=== PATIENT | male | born 1955 | race Two or more races ===

== ENCOUNTER 2016-07-05 14:40 | Emergency (ER) | payer MEDICARE, MEDICAID ==
--- NOTE | 2016-07-05 14:58 | ED Physician Chart ---
Chief Complaint/HPI - Patient Information Date Seen:: 07/05/16 Time Seen:: 14:50 Chief Complaint:: Painful "bump" in coccygeal region for about one week. History of Present Illness:: Pt has noticed a painful area in coccygeal region for one week. No fever. Taking po well without N/V/D. No known injury or trauma to affected area. Pt has not taken any pain medication today. Pt states that he just had lunch but forgot to take his diabetic medications today. Allergies:: PCN Vitals:: see Nurse Note. Historian:: Patient Family MD/PCP:: Dr. Borrero LMP:: N/A Review:: Nurse's Note Reviewed Review of Systems - Review of Systems General/Constitutional: No fever, No chills, No weight loss, No weakness, No diaphoresis, No edema, No loss of appetite Skin: Skin lesions (see HPI.) Head: No headache, No light-headedness Eyes: No loss of vision, No pain, No diplopia ENT: No earache, No nasal drainage, No sore throat, No tinnitus Neck: No neck pain, No swelling, No thyromegaly, No stiffness, No mass noted Cardio Vascular: No chest pain, No palpitations, No PND, No orthopnea, No edema Pulmonary: No SOB, No cough, No sputum, No wheezing GI: No nausea, No vomiting, No diarrhea, No pain, No melena, No hematochezia, No constipation, No hematemesis G/U: No dysuria, No frequency, No hematuria Musculoskeletal: No bone or joint pain, No back pain, No muscle pain Endocrine: No polyuria, No polydipsia Psychiatric: No prior psych history Hematopoietic: No bruising, No lymphadenopathy Allergic/Immuno: No urticaria, No angioedema Neurological: No syncope, No focal symptoms, No weakness, No paresthesia, No headache, No seizure, No dizziness, No confusion, No vertigo Past Medical History - Past Medical History Past Medical History: HTN, DM, Other (BPH) Family History: Diabetes Melitus (in P aunt and one brother.) Social History: Smoker (One ppd. Pt has been informed about health risks related to chronic tobacco use and has been advised to quit. Pt has been encouraged to enroll in a smoking cessation program. Pt acknowledges understanding.), No Alcohol, No Drug Use, , Other (lives with his daughter.) Employment:: Retired. Surgical History: None Psychiatricy History: None Medication: Reviewed Family Medical History - Family Member Daughter Living Status: Still Living Other Medical History: ok Physical Exam - Physical Examination General/Constitutional: Awake, Well-developed, well-nourished, Alert, No distress, GCS 15, Non-toxic appearing, Ambulatory Other Gen/Cons comments:: Breathes comfortably, speaks clearly, and ambulates without assistance without difficulty. Head: Atraumatic Eyes: Lids, conjuctiva normal, PERRL, EOMI Skin: No ecchymosis, Well hydrated, No lymphadenopathy Other Skin comments:: There is an approx. 1 cm subcutaneous induration at distal coccygeal region that is tender with palpation with very minimal erythema. No flocculent center. No open wound or crepitus. The lesion is mobile. ENMT: External ears, nose nl, Nasal exam nl, Oropharynx nl Neck: Nontender, Full ROM w/o pain, No JVD, No nuchal rigidity, No mass, No stridor Respiratory: Nl effort/Exclusion, Clear to Auscultation, No Wheeze/Rhonchi/Rales Cardio Vascular: RRR, No murmur, gallop, rubs, NL S1 S2 GI: No tenderness/rebounding/guarding, No organomegaly, No hernia, Normal BS's, Nondistended, No mass/bruits, No McBurney tenderness Other GI comments:: Abdomen is soft. Extremities: No tenderness or effusion, Full ROM, normal strength in all extremities, No edema, Normal digits & nails Neuro/Psych: Alert/oriented (oriented x 3), Mood normal, Normal gait, No focal deficits Labs/Radiology/EKG Results - Lab Results Results: Laboratory Tests 07/05/16 07/05/16 15:45 15:45 WBC 8.9 RBC 4.82 Hgb 15.4 Hct 44.9 MCV 93.0 MCH 31.8 H MCHC Differential 34.2 RDW 11.9 Plt Count 294 MPV 7.1 Neutrophils % 61.5 Lymphocytes % 30.2 Monocytes % 6.0 Eosinophils % 2.2 Basophils % 0.1 Sodium 131 L Potassium 3.7 Chloride 101 Carbon Dioxide 27.6 Anion Gap 6.1 L BUN 14 Creatinine 0.9 Est GFR ( Amer) > 60.0 Est GFR (Non-Af Amer) > 60.0 BUN/Creatinine Ratio 15.6 Glucose 391 H Calcium 9.2 Total Bilirubin 0.4 AST 16 ALT 15 Alkaline Phosphatase 71 Total Protein 6.7 Albumin 3.5 L Globulin 3.2 Albumin/Globulin Ratio 1.1 Serum Ketones NEGATIVE ED Septic Shock - . Is Septic Shock (SBP<90, OR Lactate>4 mmol\\L) present?: No Reassessment (Disposition) - Reassessment Reassessment:: 1640 Pt feels much better. Pt took his diabetic medication metformin. His glucose gradually improved with repeat Accuchek 325. Pt denies any discomfort, lightheadedness. No N/V/D. Pt is ambulatory without difficulty. Lab findings have been reviewed with pt. Pt requests to go home now and does not want further observation/management in hospital. Pt states that he will continue glucose monitoring at home. Pt is aware of signs and symptoms of hypo- and hyperglycemia as well as proper actions to be taken should any of these occurs. Aftercare instructions given. Reassessment Condition:: Improved - Diagnosis Diagnosis:: Early abscess in coccygeal region, not ready for I & D. Stable. Diabetes mellitus, not well controlled due to missing diabetic medical therapy this morning, improved after taking his metformin. Pt will continue glucose monitoring at home. Pt states he will be compliant with his diabetic medical therapy and will be followed with his PCP tomorrow. - Aftercare/Follow up Instructions Aftercare/Follow-Up Instructions:: Refer to Discharge Instructions Notes:: Pt has been instructed to be compliant with his diabetic medical therapy and glucose monitoring at home. Increase oral fluid. Apply warm compress to affected area in coccygeal region for 15 minutes q2h. May take Tylenol 500 mg tab one tab po q4-6h prn pain. F/U with PCP Dr. Borrero in one day for recheck. Return to ER immediately if condition worsens or if any further questions/problems. Medication Prescribed:: Bactrim DS one tab po q12h for 10 days. D-20 R-0 - Patient Disposition Discharge/Transfer:: Home Time:: 16:40 Condition at Disposition:: Stable, Improved ED Discharge Plan - Patient Disposition Prescriptions: Sulfamethoxazole/TMP [Bactrim DS] 1 tab PO Q12HR #0 tab Instructions: Abscess
[2016-07-05 15:55] LABS: % BASOPHILS 0.1 % (0.0-2.0); % EOSINOPHILS 2.2 % (0.0-5.0); % LYMPHOCYTES 30.2 % (20.0-50.0); % NEUTROPHILS 61.5 % (40.0-80.0); HEMATOCRIT 44.9 % (39.0-49.0); HEMOGLOBIN 15.4 gm/dL (13.2-17.3); MEAN CORPUSCULAR HEMOGLOBIN 31.8 pg (26.0-30.0); MEAN CORPUSCULAR HGB CONC 34.2 pg (28.0-36.0); MEAN PLATELET VOLUME 7.1 fl; NEUTROPHILE ABSOLUTE 5.5 Th/cmm (1.8-8.0); PLATELET COUNT 294 Th/cmm (150-400); RED BLOOD COUNT 4.82 Mil/cmm (4.30-5.70); RED CELL DISTRIBUTION WIDTH 11.9 % (11.5-20.0); WHITE BLOOD COUNT 8.9 Th/cmm (4.8-10.8)
[2016-07-05 16:07] LABS: ALB/GLOB RATIO 1.1 (1.0-1.8); ALKALINE PHOSPHATASE 71 U/L (34-104); ANION GAP 6.1 (7.0-16.0); BILIRUBIN,TOTAL 0.4 mg/dL (0.3-1.0); BUN - UREA NITROGEN 14 mg/dL (7-25); BUN/CREATININE RATIO 15.6; CALCIUM SERUM 9.2 mg/dL (8.6-10.3); CARBON DIOXIDE 27.6 mEq/L (21.0-31.0); CHLORIDE 101 mEq/L (98-107); CREATININE - SERUM 0.9 mg/dL (0.7-1.3); GLUCOSE 391 mg/dL (70-105); POTASSIUM SERUM 3.7 mEq/L (3.5-5.1); SGOT 16 U/L (13-39); SGPT/ALT 15 U/L (7-52); SODIUM SERUM 131 mEq/L (136-145)
== END 2016-07-05 16:45 | disposition home or self-care (01) ==
LOC: ER 14:40
DX: L05.02 Pilonidal sinus with abscess (principal); E11.9 Type 2 diabetes mellitus without complications; I10 Essential (primary) hypertension; F17.200 Nicotine dependence, unspecified, uncomplicated; Z88.0 Allergy status to penicillin
CPT/HCPCS: 99284; 96372; 36415; 36416 ×2; 82948 ×2; 85025; 83036; 82010; 80053; J1885; Z7502